=== PATIENT | female | born 1965 | race Caucasian/White ===

== ENCOUNTER 2020-12-29 23:42 | Inpatient (IN) | payer MEDICAID ==
[~2020-12-29] VITALS: Ht 162.6 cm; Wt 61.6 kg
--- NOTE | 2020-12-29 23:56 | NUR ---
PT ARRIVED VIA [facility]SA TO T3. PT A&OX4. CALM AND COOPERATIVE. PT SKIN PALE/JAUNDICED AND COOL TO TOUCH. PT HAS DRIED BLOOD AND DARK BLOOD AROUND HER LIPS FROM PREVIUS EMESIS. GOOD AERATION AND OXYGENATION ON CR MONITOR. REPORT RECEIVED FROM MONSERRAT. TO BEDSIDE. PT HAS PR[facility] 2ND UNIT INFUSING PER [facility], AND TUBING CHANGED TO OUR TUBING AND ON A PUMP, TO RUN OVER 2 HOURS. UNIT IS FULL. PT WITH BILATERAL PIV, 20G RIGHT AC, AND 18G LEFT AC. PT ON 02 2LPM NC. PT SAYS SHE HAS AN ALLERGY TO A MEDICINE SHE TOOK 30 YEARS AGO, BUT CAN'T REMEMBER THE NAME OF IT, AND IT GAVE HER A RASH.
[2020-12-30] VITALS (9 sets, daily range): BP systolic 100–150; BP diastolic 60–77
--- NOTE | 2020-12-30 | NUR ---
BED SETTER TO BEDSIDE AND DEISI BLOOD. UPDATED TO CURRENT TREATMENT AND CARE. NO FURTHER ORDERS AT THIS TIME.
[2020-12-30 00:14] LABS: BASOPHILS % (AUTO) 1 % (0-1); EOSINOPHILS % (AUTO) 0 % (1-7); LYMPHOCYTES % (AUTO) 9 % (22-44); MEAN CORPUSCULAR HEMOGLOBIN 32.3 pg (27.0-34.8); MEAN CORPUSCULAR HGB CONC 33.5 g/dL (32.4-35.8); MEAN PLATELET VOLUME 8.4 fL (7.4-10.4); MONOCYTES % (AUTO) 8 % (2-9); NEUTROPHILS % (AUTO) 82 % (42-75); PLATELET COUNT 100 x10^3/uL (130-400); RED CELL DISTRIBUTION WIDTH 18.2 % (9.6-15.2)
--- NOTE | 2020-12-30 00:15 | NUR ---
BEDSIDE REPORT RECIEVED FROM IMAN RN
--- NOTE | 2020-12-30 00:18 | NUR ---
REPORT AND CARE TRANSFERRED TO [facility], AND PT MOVED TO ROOM 18 IN STABLE CONDITION. PRBC INFUSION INTACT, AND V/S Q15MIN NOTED ON TRANSFUSION HARD PAPER. LAB CALLED WITH CRITICAL VALUES HEMOGLOBIN 6.8 AND HEMATOCRIT 20.3
[2020-12-30 00:20] LABS: INTERNATIONAL NORMALIZED RATIO 1.83 (0.93-1.1); PROTHROMBIN TIME 19.3 Seconds (9.6-11.5)
[2020-12-30 00:21] LABS: ALANINE AMINOTRANSFERASE 53 U/L (12-78); ALBUMIN 2.3 g/dL (3.4-5.0); ANION GAP 11 mmol/L (5-15); CALCIUM 6.5 mg/dL (8.5-10.1); CHLORIDE 107 mmol/L (98-107); CREATININE 0.63 mg/dL (0.55-1.02)
[2020-12-30 00:22] LABS: MD NO
[2020-12-30] MEDS ORDERED: ONDANSETRON 2MG/ML, 2ML ONE (00:22)
[2020-12-30 00:24] LABS: ALKALINE PHOSPHATASE 99 U/L (45-117); BILIRUBIN,TOTAL 4.3 mg/dL (0.2-1.0); TOTAL PROTEIN 5.1 g/dL (6.4-8.2)
[2020-12-30] MEDS ORDERED: GABA300C PO (00:30)
[2020-12-30] MEDS ORDERED: ONDANSETRON 2MG/ML, 2ML IVPush ONE (00:30)
[2020-12-30] MEDS ORDERED: OMEP10CA5 PO (00:30)
--- NOTE | 2020-12-30 01:25 | NUR ---
Pt to be admitted to [facility], room 488-1. Report called to ROSALINDA.
--- NOTE | 2020-12-30 01:30 | NUR ---
0115- END OF BLOOD TRANSFUSION. 1 PRBC'S UNIT FROM TRANSFERING FACILITY COMPLETE. VITALS REMAIN STABLE. PT DENIES ANY ADDITIONAL NEEDS AT THIS TIME. \ HOSPITALIST AT BEDSIDE.
[2020-12-30] MEDS ORDERED: PHYTONADIONE 10 MG/ML, 1ML SQ ONE (02:00)
[2020-12-30] MEDS ORDERED: morphine SULFATE 10 MG/ML, 1ML IVPush PRN (02:00)
[2020-12-30] MEDS ORDERED: LEVO25TA2 PO (02:06)
[2020-12-30] MEDS: PANTOPRAZOLE 80 MG in SODIUM CHLORIDE 0.9% 100 ML IV SCH ×2 (03:04→19:42)
[2020-12-30] MEDS: POTASSIUM CHLORIDE 20 MEQ, MAGNESIUM SULFATE 2 GM, THIAMINE 200 MG, FOLIC ACID 1 MG in ... IV SCH ×2 (03:04→19:45)
[2020-12-30] MEDS: OCTREOTIDE 500 MCG in SODIUM CHLORIDE 0.9% 99 ML IV SCH ×2 (03:25→19:41)
[2020-12-30] MEDS: ONDANSETRON 2MG/ML, 2ML IVPush PRN ×3 (07:46→17:32)
[2020-12-30 09:43] LABS: CLOSTRIDIUM DIFFICILE ANTIGEN POSITIVE; CLOSTRIDIUM DIFFICILE TOXIN NEGATIVE (Negative)
[2020-12-30] MEDS ORDERED: FENTANYL PF 100 MCG/2ML ONE ×2 (10:15→10:47)
[2020-12-30] MEDS ORDERED: LORazepam 2 MG/ML, 1ML IVPush PRN ×2 (10:30→11:00)
[2020-12-30] MEDS ORDERED: PROMETHAZINE 25 MG/ML, 1ML ONE (10:47)
[2020-12-30] MEDS ORDERED: ONDANSETRON 2MG/ML, 2ML IVPush PRN (11:00)
[2020-12-30] MEDS ORDERED: PROMETHAZINE 25 MG/ML, 1ML IVPush PRN (11:00)
[2020-12-30] MEDS ORDERED: METHOCARBAMOL 1,000 MG in DEXTROSE 5% 100 ML IV PRN (11:00)
[2020-12-30] MEDS ORDERED: HYDROmorphone 1 MG/ML, 1ML INJ IVPush PRN (11:00)
[2020-12-30] MEDS ORDERED: FENTANYL PF 100 MCG/2ML IV PRN (11:00)
[2020-12-30] MEDS ORDERED: OXYcodone 5 MG/5 ML ORAL.SOL UDC PO PRN (11:00)
[2020-12-30] MEDS ORDERED: PROPOFOL 10 MG/ML, 20ML ONE (16:17)
[2020-12-31 03:40] VITALS: BP 103/67
[2020-12-31] MEDS: PANTOPRAZOLE 80 MG in SODIUM CHLORIDE 0.9% 100 ML IV SCH (05:46)
[2020-12-31] MEDS: OCTREOTIDE 500 MCG in SODIUM CHLORIDE 0.9% 99 ML IV SCH ×2 (05:46→18:26)
[2020-12-31 05:49] LABS: INTERNATIONAL NORMALIZED RATIO 1.74 (0.93-1.1); PROTHROMBIN TIME 18.4 Seconds (9.6-11.5)
[2020-12-31 06:01] LABS: CHLORIDE 112 mmol/L (98-107)
[2020-12-31 06:08] LABS: ALANINE AMINOTRANSFERASE 45 U/L (12-78); ALBUMIN 2.5 g/dL (3.4-5.0); ALKALINE PHOSPHATASE 89 U/L (45-117); BILIRUBIN, DIRECT 2.8 mg/dL (0.1-0.2); BILIRUBIN,INDIRECT 1.3 mg/dL (0.0-2.0); BILIRUBIN,TOTAL 4.1 mg/dL (0.2-1.0); TOTAL PROTEIN 5.6 g/dL (6.4-8.2)
[2020-12-31 06:36] LABS: BASOPHILS % (AUTO) 0 % (0-1); EOSINOPHILS % (AUTO) 3 % (1-7); LYMPHOCYTES % (AUTO) 16 % (22-44); MEAN CORPUSCULAR HEMOGLOBIN 32.2 pg (27.0-34.8); MEAN PLATELET VOLUME 8.4 fL (7.4-10.4); MONOCYTES % (AUTO) 9 % (2-9); NEUTROPHILS % (AUTO) 72 % (42-75); PLATELET COUNT 74 x10^3/uL (130-400); RED CELL DISTRIBUTION WIDTH 19.1 % (9.6-15.2)
[2020-12-31 06:36] LABS: ANION GAP 7 mmol/L (5-15)
[2020-12-31 06:47] LABS: MD NO
[2020-12-31 07:48] VITALS: BP 116/66
[2020-12-31] MEDS: PHYTONADIONE 10 MG/ML, 1ML SQ SCH (09:49)
[2020-12-31] MEDS ORDERED: DIPHENHYDRAMINE 50 MG/ML, 1ML IVPush PRN (11:30)
[2020-12-31] MEDS: CEFTRIAXONE PMX 1GM/50ML 50 ML IV SCH (11:40)
[2020-12-31 12:21] VITALS: BP 107/62
[2020-12-31] MEDS: PANTOPRAZOLE 20MG TABLET PO SCH (16:16)
[2020-12-31] MEDS: SUCRALFATE 1 GM TABLET PO SCH ×2 (16:17→21:00)
[2020-12-31 19:32] VITALS: BP 113/56
[2020-12-31] MEDS ORDERED: PANTOPRAZOLE 40 MG IV IVPush SCH (21:00)
[2020-12-31] MEDS: POTASSIUM CHLORIDE 20 MEQ, MAGNESIUM SULFATE 2 GM, THIAMINE 200 MG, FOLIC ACID 1 MG in ... IV SCH (22:19)
[2021-01-01 00:31] VITALS: BP 108/59
[2021-01-01] MEDS: PANTOPRAZOLE 20MG TABLET PO SCH ×2 (05:08→17:34)
[2021-01-01] MEDS: OCTREOTIDE 500 MCG in SODIUM CHLORIDE 0.9% 99 ML IV SCH ×2 (05:09→14:46)
[2021-01-01 06:11] LABS: ALBUMIN 2.3 g/dL (3.4-5.0); ANION GAP 6 mmol/L (5-15); CALCIUM 6.8 mg/dL (8.5-10.1); CHLORIDE 107 mmol/L (98-107)
[2021-01-01 06:12] LABS: BASOPHILS % (AUTO) 0 % (0-1); EOSINOPHILS % (AUTO) 2 % (1-7); LYMPHOCYTES % (AUTO) 16 % (22-44); MEAN CORPUSCULAR HEMOGLOBIN 33.3 pg (27.0-34.8); MEAN CORPUSCULAR HGB CONC 34.2 g/dL (32.4-35.8); MEAN PLATELET VOLUME 8.8 fL (7.4-10.4); MONOCYTES % (AUTO) 7 % (2-9); NEUTROPHILS % (AUTO) 75 % (42-75); PLATELET COUNT 75 x10^3/uL (130-400); RED BLOOD COUNT 2.13 x10^6/uL (3.82-5.3); RED CELL DISTRIBUTION WIDTH 19.2 % (9.6-15.2)
[2021-01-01 06:14] LABS: ALANINE AMINOTRANSFERASE 43 U/L (12-78); ALKALINE PHOSPHATASE 81 U/L (45-117); BILIRUBIN,TOTAL 3.9 mg/dL (0.2-1.0); CREATININE 0.46 mg/dL (0.55-1.02); TOTAL PROTEIN 5.3 g/dL (6.4-8.2)
[2021-01-01 06:35] LABS: MD NO
[2021-01-01 06:40] VITALS: BP 98/61
[2021-01-01] MEDS: SUCRALFATE 1 GM TABLET PO SCH ×4 (07:00→20:04)
[2021-01-01] MEDS: PHYTONADIONE 10 MG/ML, 1ML SQ SCH (08:12)
[2021-01-01] MEDS ORDERED: SODIUM PHOSPHATE 20 MMOL in SODIUM CHLORIDE 0.9% 500 ML IV ONE (10:30)
[2021-01-01] MEDS: CEFTRIAXONE PMX 1GM/50ML 50 ML IV SCH (11:09)
[2021-01-01] MEDS: VANCOMYCIN 50 MG/ML ORAL SUSP PO SCH ×3 (11:09→22:39)
[2021-01-01 13:02] VITALS: BP 102/60
[2021-01-01] MEDS ORDERED: CALCIUM GLUCONATE 4.6 MEQ in SODIUM CHLORIDE 0.9% 100 ML IV ONE (18:30)
[2021-01-01 19:14] VITALS: BP 114/61
[2021-01-01] MEDS: POTASSIUM CHLORIDE 20 MEQ, MAGNESIUM SULFATE 2 GM, THIAMINE 200 MG, FOLIC ACID 1 MG in ... IV SCH (22:56)
[2021-01-02 00:48] VITALS: BP 125/63
[2021-01-02] MEDS: OCTREOTIDE 500 MCG in SODIUM CHLORIDE 0.9% 99 ML IV SCH (01:42)
[2021-01-02] MEDS: VANCOMYCIN 50 MG/ML ORAL SUSP PO SCH ×2 (04:28→11:03)
[2021-01-02] MEDS: PANTOPRAZOLE 20MG TABLET PO SCH (05:22)
[2021-01-02 05:35] LABS: BASOPHILS % (AUTO) 0 % (0-1); EOSINOPHILS % (AUTO) 2 % (1-7); LYMPHOCYTES % (AUTO) 19 % (22-44); MEAN CORPUSCULAR HEMOGLOBIN 33.5 pg (27.0-34.8); MEAN CORPUSCULAR HGB CONC 34.2 g/dL (32.4-35.8); MEAN PLATELET VOLUME 8.7 fL (7.4-10.4); MONOCYTES % (AUTO) 12 % (2-9); NEUTROPHILS % (AUTO) 68 % (42-75); PLATELET COUNT 82 x10^3/uL (130-400); RED BLOOD COUNT 2.21 x10^6/uL (3.82-5.3); RED CELL DISTRIBUTION WIDTH 19.2 % (9.6-15.2)
[2021-01-02 05:40] LABS: MD NO
[2021-01-02 05:46] LABS: CHLORIDE 109 mmol/L (98-107)
[2021-01-02 05:52] LABS: ANION GAP 7 mmol/L (5-15); CALCIUM 6.9 mg/dL (8.5-10.1); CREATININE 0.54 mg/dL (0.55-1.02)
[2021-01-02 08:01] VITALS: BP 109/63
[2021-01-02] MEDS: SUCRALFATE 1 GM TABLET PO SCH ×2 (08:44→11:03)
[2021-01-02] MEDS: CEFTRIAXONE PMX 1GM/50ML 50 ML IV SCH (11:03)
[2021-01-02] MEDS ORDERED: SUCR1TAB33 PO (11:41)
[2021-01-02] MEDS ORDERED: OMEP20TA62 PO (11:41)
[2021-01-02] MEDS ORDERED: FERR324T5 PO (11:41)
[2021-01-02 12:45] VITALS: BP 115/66
[2021-01-03] MEDS ORDERED: PROP60CA36 PO (17:00)
== END 2021-01-02 14:18 | disposition home or self-care (01) | DRG 280 ==
LOC: ED 12-30 00:12 → EDIP 12-30 00:56 → 4EST 12-30 02:04
PROVIDERS: ADMIT Family Medicine; ATTEND Internal Medicine
PROC: 30233K1 Transfusion of Nonautologous Frozen Plasma into Peripheral Vein, Percutaneous Approach (ICD-10-PCS; 2020-12-30)
PROC: 0DL58DZ Occlusion of Esophagus with Intraluminal Device, Via Natural or Artificial Opening Endoscopic (ICD-10-PCS; principal; 2020-12-30 12:00)
DX: K70.31 Alcoholic cirrhosis of liver with ascites (principal); E83.51 Hypocalcemia; D62 Acute posthemorrhagic anemia; I85.11 Secondary esophageal varices with bleeding; K29.71 Gastritis, unspecified, with bleeding; E44.0 Moderate protein-calorie malnutrition; E83.42 Hypomagnesemia; K76.6 Portal hypertension; D68.4 Acquired coagulation factor deficiency; D69.6 Thrombocytopenia, unspecified; A04.72 Enterocolitis due to Clostridium difficile, not specified as recurrent; D69.59 Other secondary thrombocytopenia; E03.9 Hypothyroidism, unspecified; E83.39 Other disorders of phosphorus metabolism; F10.20 Alcohol dependence, uncomplicated; F12.90 Cannabis use, unspecified, uncomplicated; G62.9 Polyneuropathy, unspecified; K31.89 Other diseases of stomach and duodenum; Z20.822 Contact with and (suspected) exposure to COVID-19; Z80.1 Family history of malignant neoplasm of trachea, bronchus and lung; Z87.11 Personal history of peptic ulcer disease; Z87.891 Personal history of nicotine dependence; Z68.23 Body mass index [BMI] 23.0-23.9, adult
CPT/HCPCS: 36415; 76705; 80048; 80053; 80074; 80320; 82247; 82248; 83690; 83735; 84100; 84443; 85014; 85018; 85025; 85610; 86850; 86900; 87324; 87493; 87635; 93005; 96374; G0378; J0610; J0696; J2354; J2405; J2550; J2704; J3010; J3370; J3411; J3430; J3475; J3480; J7042; C9113; G0480; J2060; J7040; P9017